=== PATIENT | male | born 1960 | race Hispanic/Latino ===

== ENCOUNTER → 2018-04-11 | Outpatient (CLI) | payer BC | END | disposition home or self-care (01) | LOC: RAH 10:51 | PROVIDERS: ATTEND Family Medicine | DX: M47.816 Spondylosis without myelopathy or radiculopathy, lumbar region (principal); M48.061 Spinal stenosis, lumbar region without neurogenic claudication | CPT/HCPCS: 72100 ==

== ENCOUNTER → 2018-09-05 | Outpatient (CLI) | payer BC | END | disposition home or self-care (01) | LOC: RAH 15:25 | PROVIDERS: ATTEND Family Medicine | DX: M19.011 Primary osteoarthritis, right shoulder (principal); M25.711 Osteophyte, right shoulder | CPT/HCPCS: 73030 ==

== ENCOUNTER → 2019-02-28 | Outpatient (CLI) | payer BC | END | disposition home or self-care (01) | LOC: RAH 07:34 | PROVIDERS: ATTEND Family Medicine | DX: R10.9 Unspecified abdominal pain (principal) | CPT/HCPCS: 76700 ==

== ENCOUNTER 2019-07-21 08:24 | Day surgery (SDC) | payer BC ==
[~2019-07-21] VITALS: Ht 167.6 cm; Wt 79.4 kg
[~2019-07-21 08:24] MED LIST: BOTULINUM TOXIN TYPE A 100 UNITS/VIAL INJ SCH; LORA10TA7 PO; LUBI24CA2 PO; MONT10TA26 PO; ROSU10TA28 PO; SODIUM CHLORIDE 0.9% 1000ML 1,000 ML IV ONE; TRAZ-185 PO; UBID100C45 PO
[2019-07-21 09:20] VITALS: BP 128/77
[2019-07-21] MEDS ORDERED: PROPOFOL 10 MG/ML 20ML VIAL IV ONE ×2 (10:36→11:19)
[2019-07-21] MEDS ORDERED: MIDAZOLAM HCL 1 MG/ML 2ML VIAL ONE (10:40)
[2019-07-21 11:24] VITALS: BP 122/64
[2019-07-21 11:29] VITALS: BP 104/65
[2019-07-21 11:35] VITALS: BP 101/66
[2019-07-21 11:40] VITALS: BP 109/74
[2019-07-21 11:50] VITALS: BP 119/76
== END 2019-07-21 12:15 | disposition home or self-care (01) ==
LOC: DAH 08:24 → ENDO 08:24
PROVIDERS: ATTEND Internal Medicine Gastroenterology
DX: K59.04 Chronic idiopathic constipation (principal); K60.2 Anal fissure, unspecified; D12.5 Benign neoplasm of sigmoid colon; K62.89 Other specified diseases of anus and rectum; I10 Essential (primary) hypertension; E78.5 Hyperlipidemia, unspecified; K21.9 Gastro-esophageal reflux disease without esophagitis; K29.70 Gastritis, unspecified, without bleeding; F41.9 Anxiety disorder, unspecified; Z80.0 Family history of malignant neoplasm of digestive organs; Z11.59 Encounter for screening for other viral diseases
CPT/HCPCS: 36415; 45331; 45335; A4215; A4216; A4221; A4222; A4223; A4606; A4615; A4657; A4663; J0585; J2250; J2704 ×2; J7030; U0003

== ENCOUNTER → 2024-10-16 | Outpatient (CLI) | payer OTHER ==
[~2024-10-16] MED LIST changes: -BOTULINUM TOXIN TYPE A 100 UNITS/VIAL INJ SCH; -LUBI24CA2 PO; +LUBI24CA40 PO; +MONT-39 PO; -MONT10TA26 PO; -ROSU10TA28 PO; +ROSU10TA72 PO; -SODIUM CHLORIDE 0.9% 1000ML 1,000 ML IV ONE
--- NOTE | 2024-10-16 15:36 | HMCIMG ---
DOUBLE CONTRAST UPPER GI SERIES: Finding: The study was performed using provocative maneuvers After swallowing effervescent crystal and thick barium, there is no definite intrinsic or extrinsic lesion seen in the esophagus. There is a small hiatal hernia with grade 1 esophageal reflux. The stomach is normal in size, shape, and configuration. The stomach has delayed emptying suggesting of gastroparesis. The rugal folds appear to be normal. The duodenal bulb, duodenal sweep, and upper jejunum appear to be normal. Fluoroscopy time: 1.2 minutes IMPRESSION: Small hiatal hernia with grade 1 esophageal reflux Mild gastroparesis. Otherwise NORMAL DOUBLE CONTRAST UPPER GI SERIES.
== END | disposition home or self-care (01) ==
LOC: RAH 09:41
PROVIDERS: ATTEND Internal Medicine
DX: K21.9 Gastro-esophageal reflux disease without esophagitis (principal); K31.84 Gastroparesis; K44.9 Diaphragmatic hernia without obstruction or gangrene; R05.1 Acute cough
CPT/HCPCS: 74240